=== PATIENT | female | born 1945 | race Caucasian/White ===

== ENCOUNTER 2023-02-22 14:43 | Outpatient (CLI) | payer MEDICARE, OTHER, SELFPAY ==
[2023-02-22 15:37] LABS: Rheumatoid Factor < 12.0 IU/ML (<12)
[2023-02-22 16:15] LABS: Appearance Urine Clear (Clear); Bacteria Urine 4+ /hpf; Bilirubin Urine Negative (Negative); Blood Urine Negative (Negative); Color Urine Dark Yellow (Yellow); Glucose Urine UA Negative (Negative); Ketones Urine Negative (Negative); Leukocyte Esterase Ur 2+ LEU/UL (NEGATIVE); Nitrate Urine Negative (Negative); Non Pathogenic Casts 0-2; Protein Urine Negative (Negative); RBC Urine 0-2 /hpf (0-2); Squamous Epithelial Cell Urine None seen /hpf (Few); Urobilinogen Urine 0.2 mg/dL (<2.0); WBC Urine 21-50 /hpf (0-3)
[2023-02-22 16:23] LABS: Add Urine Microscopic? YES
[2023-02-26 18:53] LABS: SM Antibody <1.0; SM/RNP Antibody <1.0; SS-A <1.0; SS-B <1.0
[2023-02-27 10:24] LABS: Anti Glomerular Basement Memb <1.0 AI (<1.0)
[2023-02-27 14:56] LABS: ANCA Screen Negative (Negative)
[2023-02-28 14:12] LABS: ANA Titer 1:40 (Negative); Anti Nuclear Antibody Titer 1:40 (Negative)
== END 2023-02-22 14:44 | disposition home or self-care (01) ==
PROVIDERS: PCP Family Medicine; Visit Provider Internal Medicine Nephrology
DX: T78.40XA Allergy, unspecified, initial encounter (principal); R82.81 Pyuria; R76.0 Raised antibody titer
CPT/HCPCS: 36415; 81001; 82595; 83520; 86036; 86038; 86039; 86225; 86235; 86430; 87077; 87086; 87186